=== PATIENT | female | born 1985 | race Caucasian/White ===

== ENCOUNTER 2018-06-18 14:27 | Emergency (ER) | payer SELFPAY ==
[~2018-06-18] VITALS: Ht 162.6 cm; Wt 58.0 kg
[2018-06-18 14:56] VITALS: BP 129/87
[2018-06-18] MEDS ORDERED: DIAZEPAM 5 MG TABLET PO ONE (15:30)
[2018-06-18] MEDS ORDERED: DIAZEPAM 5 MG TABLET ONE (15:39)
[2018-06-18] MEDS ORDERED: IBUPROFEN 200 MG TABLET PO ONE (16:30)
== END 2018-06-18 16:30 | disposition home or self-care (01) ==
LOC: ED 16:25
DX: M26.621 Arthralgia of right temporomandibular joint (principal); F41.1 Generalized anxiety disorder; R06.4 Hyperventilation; J45.909 Unspecified asthma, uncomplicated
CPT/HCPCS: 70100; 99284